=== PATIENT | female | born 1985 | race Asian ===

== ENCOUNTER 2020-07-07 14:03 | Outpatient (CLI) | payer OTHER ==
[~2020-07-07 14:03] MED LIST: GARAMYCIN5 ML OP; KETO10TA2 PO; ORPH100T PO; [UNRECOGNIZED DRUG - OTHER] OP
== END 2020-07-07 15:30 | disposition home or self-care (01) ==
LOC: OFIC 805 14:03
PROVIDERS: ATTEND Otolaryngology Otology & Neurotology
DX: J30.89 Other allergic rhinitis (principal); H69.83 Other specified disorders of Eustachian tube, bilateral; H93.8X3 Other specified disorders of ear, bilateral